=== PATIENT | male | born 1955 | race Caucasian/White ===

== ENCOUNTER 2021-03-08 21:29 | Emergency (ER) | payer BC ==
[2021-03-08 21:34] VITALS: TEMP 98
[2021-03-08] MEDS ORDERED: SODIUM CHLORIDE 0.9% 1,000 ML IV STA ×2 (21:41)
[2021-03-08] MEDS ORDERED: ONDANSETRON 4 MG/2 ML VIAL IVP STA (21:41)
[2021-03-08] MEDS ORDERED: MORPHINE SULFATE 4 MG/ML SYRINGE IV STA (21:41)
[2021-03-08] MEDS ORDERED: DILTIAZEM DRIP BOLUS FROM BAG 1 MG SOLN IV ONE (21:41)
[2021-03-08] MEDS ORDERED: METOPROLOL TARTRATE 5 MG/5 ML VIAL IVP STA (21:41)
--- NOTE | 2021-03-08 21:42 | ED ---
Chest Pain HPI - General Chief Complaint: Chest Pain Stated Complaint: Chest Pain Time Seen by Provider: 03/08/21 21:41 Source: patient, RN notes reviewed, old records reviewed Mode of arrival: wheelchair Limitations: no limitations - History of Present Illness Initial Comments: This is a 65-year-old male DF for evaluation patient presents with for chest pain. Patient had chest pain for 2-3 days. Sweating and episodes of severe pain started by episodes of lesser pain. Patient of severe shortness of breath nausea vomiting tonight. Patient has history of high blood pressure cholesterol diabetes history of smoking. History of some alcohol use but has not drank in 2 days. Otherwise no recent travel history or sick contacts MD Complaint: chest pain -: days(s) Onset: during rest, during exertion, after eating, awoke with symptoms Pain Location: substernal, left chest Pain Radiation: back Severity: moderate Severity scale (1-10): 5 Quality: tightness, aching, heaviness Consistency: constant Improves With: nothing Worsens With: exertion Context: recent illness Anginal Symptoms: nausea, vomiting Other Symptoms: cough, palpitations Treatments Prior to Arrival: none - Related Data Home Medications Medication Instructions Recorded Confirmed Ibuprofen [Advil] 600 mg PO Q8HR PRN 03/08/21 03/08/21 Lisinopril-Hctz 20-25 mg 1 tab PO DAILY 03/08/21 03/08/21 [Zestoretic 20-25] Pioglitazone HCl 15 mg PO DAILY 03/08/21 03/08/21 Rosuvastatin Calcium 20 mg PO DAILY 03/08/21 03/08/21 Allergies Allergy/AdvReac Type Severity Reaction Status Date / Time codeine Allergy Rash/Hives Verified 03/08/21 22:27 Penicillins Allergy Rash/Hives Verified 03/08/21 22:27 Review of Systems ROS Statement: Those systems with pertinent positive or pertinent negative responses have been documented in the HPI. ROS Other: All systems not noted in ROS Statement are negative. EKG Findings - EKG Comments: EKG Findings:: EKG is A. fib 128 QRS 114 QTc 487. repeat. EKG is A. fib 81 QRS 110 QTc 483 Past Medical History Past Medical History: Diabetes Mellitus, Hyperlipidemia, Hypertension History of Any Multi-Drug Resistant Organisms: None Reported Past Surgical History: No Surgical Hx Reported Past Psychological History: No Psychological Hx Reported Smoking Status: Current every day smoker Past Alcohol Use History: None Reported Past Drug Use History: None Reported General Exam Limitations: no limitations General appearance: alert, in no apparent distress, anxious, lethargic, in distress Head exam: Present: atraumatic, normocephalic, normal inspection Eye exam: Present: normal appearance, PERRL, EOMI. Absent: scleral icterus, conjunctival injection, periorbital swelling ENT exam: Present: normal exam, mucous membranes dry, mucous membranes moist Neck exam: Present: normal inspection. Absent: tenderness, meningismus, lymphadenopathy Respiratory exam: Present: normal lung sounds bilaterally. Absent: respiratory distress, wheezes, rales, rhonchi, stridor Cardiovascular Exam: Present: tachycardia, irregular rhythm, normal heart sounds. Absent: systolic murmur, diastolic murmur, rubs, gallop, clicks GI/Abdominal exam: Present: soft, normal bowel sounds. Absent: distended, tenderness, guarding, rebound, rigid Extremities exam: Present: normal inspection, full ROM, normal capillary refill. Absent: tenderness, pedal edema, joint swelling, calf tenderness Back exam: Present: normal inspection Neurological exam: Present: alert, oriented X3, CN II-XII intact Psychiatric exam: Present: normal affect, normal mood Skin exam: Present: warm, dry, intact, normal color. Absent: rash Course Vital Signs 03/08/21 03/08/21 03/08/21 21:32 21:35 23:00 Temperature 98.0 F Pulse Rate 94 87 90 Respiratory 20 18 16 Rate Blood Pressure 92/55 111/69 96/61 O2 Sat by Pulse 98 81 L Oximetry 03/08/21 03/08/21 03/08/21 23:17 23:18 23:30 Temperature Pulse Rate 92 101 H Respiratory Rate Blood Pressure O2 Sat by Pulse 91 L Oximetry 03/08/21 23:42 Temperature Pulse Rate 90 Respiratory 20 Rate Blood Pressure 103/63 O2 Sat by Pulse 92 L Oximetry - Reevaluation(s) Reevaluation #1: 03/08/21 23:40 medical record is reviewed Reevaluation #2: 03/08/21 23:40 heart rate well controlled with meds, EKG improved Reevaluation #3: 03/08/21 23:42 Patient family have been informed of results - Consultations Consultation #1: Spoke with cardiology regarding regarding findings and patient's elevated troponin Chest Pain MDM - MDM 65 male to ER with likely recent acute WI and ACS elevated troponin new-onset atrial fibrillation with RVR and heart failure. CT chest negative for PE Critical Care Time Critical Care Time: Yes Total Critical Care Time: 31 Disposition Clinical Impression: Chest pain, CHF (congestive heart failure), Atrial fibrillation with RVR, Hypoxia, ACS (acute coronary syndrome), Elevated troponin Disposition: ADMITTED IP TO THIS HOSP Condition: Fair Is patient prescribed a controlled substance at d/c from ED?: No Referrals: Salvador Mills DO [Primary Care Provider] - 1-2 days
[2021-03-08] MEDS ORDERED: DILTIAZEM 125 MG in SODIUM CHLORIDE 0.9% 100 ML IV SCH (21:45)
[2021-03-08 21:51] LABS: Glucose,Whole Blood 136 mg/dL (75-99)
[2021-03-08 21:57] LABS: Basophils # (A) 0.1 k/uL (0-0.2); Basophils % (A) 1 %; Eosinophils # (A) 0.3 k/uL (0-0.7); Eosinophils % (A) 2 %; HCT 44.9 % (39.0-53.0); HGB 14.7 gm/dL (13.0-17.5); Lymphocytes # (A) 3.7 k/uL (1.0-4.8); Lymphocytes % (A) 25 %; MCH 30.2 pg (25.0-35.0); MCHC 32.6 g/dL (31.0-37.0); MCV 92.5 fL (80.0-100.0); Mean Platelet Volume 8.4; Monocytes # (A) 0.7 k/uL (0-1.0); Monocytes % (A) 5 %; Neutrophils # (A) 9.9 k/uL (1.3-7.7); Neutrophils % (A) 67 %; Platelet Count 249 k/uL (150-450); RBC 4.86 m/uL (4.30-5.90); RDW 13.3 % (11.5-15.5); WBC 14.8 k/uL (3.8-10.6)
[2021-03-08 22:07] LABS: Albumin 4.2 g/dL (3.5-5.0); Phosphorus 3.5 mg/dL (2.5-4.5); Total Bilirubin 1.4 mg/dL (0.2-1.3)
[2021-03-08 22:11] LABS: Partial Thromboplastin Time 26.4 sec (22.0-30.0); Prothrombin Time 10.5 sec (9.0-12.0)
[2021-03-08 22:14] LABS: Potassium 4.2 mmol/L (3.5-5.1)
[2021-03-08 22:18] LABS: Creatine Kinase MB 13.5 ng/mL (0.0-2.4)
--- NOTE | 2021-03-08 22:25 | XR ---
EXAMINATION TYPE: XR chest 1V portable DATE OF EXAM: 03/08/2021 CLINICAL HISTORY: cp. Chest pain and shortness of breath x1 day. TECHNIQUE: Portable frontal view of the chest. COMPARISON: None FINDINGS: The cardiomediastinal silhouette is within normal limits for size. There is diffuse inters titial coarsening. There are many tiny are incidentally oriented peripheral opacities of the bilatera l lung bases which may represent Areli B lines. There is no focal air space opacity. No pleural eff usion. No pneumothorax seen. No acute displaced osseous fracture. IMPRESSION: Diffusely increased interstitial lung markings. Given possible Areli B lines, findings most likely r epresent interstitial edema. Other differential considerations include chronic interstitial coarsenin g and atypical pneumonitis.
[2021-03-08 22:28] LABS: Troponin I 11.8 ng/mL (0.000-0.034)
[2021-03-08 22:37] LABS: D-Dimer 0.63 mg/L FEU (<0.60)
[2021-03-08] MEDS ORDERED: IPRATROPIUM-ALBUTEROL 3 ML NEB INHALATION STA (23:07)
[2021-03-08] MEDS ORDERED: HEPARIN SODIUM 1,000 UN/ML (10ML VL) IV ONE (23:43)
[2021-03-08] MEDS ORDERED: HEPARIN SODIUM 1,000 UN/ML (10ML VL) IV PRN (23:43)
[2021-03-08] MEDS ORDERED: HEPARIN SOD,PORK IN 0.45% NACL 25,000 UNIT in 0.45% NACL 1 250ML.BAG IV SCH (23:45)
--- NOTE | 2021-03-09 | CT ---
EXAMINATION TYPE: CT angio chest DATE OF EXAM: 03/08/2021 COMPARISON: None HISTORY: PE CT DLP: 374.1 mGycm Automated exposure control for dose reduction was used. CONTRAST: Performed with IV Contrast, patient injected with 70 mL of Isovue 370. There are 3-D post processed images. There is 1.7 cm slightly spiculated nodule in the medial right upper lobe. This is close to the thora cic spine. Thoracic aorta is atheromatous. There are few paratracheal lymph nodes that measure up to 1.5 cm. There are bilateral bronchial lymph nodes up to 1.2 cm. Some of the lymph nodes are calcified . There is normal contrast opacification of the pulmonary arteries. There are no filling defects. The re is no thoracic aortic aneurysm. The ascending aorta measures 3.2 cm. There is coarse reticular interstitial infiltrate in the lower lung navarro bilaterally. There is mild pleural thickening posteriorly in both lung navarro. Upper abdominal soft tissues are intact. There i s some hypertrophy of the left adrenal gland. Thoracic spine is intact. There is no compression fracture. Sternum is intact. IMPRESSION: No evidence of pulmonary embolism. There is some mild mediastinal and bronchial adenopathy. Some of t his adenopathy is consistent with old granulomatous disease. There is a slightly spiculated noncalcified right upper lobe mass. Tumor is possible. Follow-up recom mended. Interstitial infiltrates in the lower lung navarro probably related to pulmonary fibrosis.
[2021-03-09] MEDS ORDERED: SODIUM CHLORIDE 0.9% 1,000 ML IV STA ×2 (01:35→03:33)
[2021-03-09] MEDS ORDERED: METOPROLOL TARTRATE 5 MG/5 ML VIAL IVP STA (02:17)
[2021-03-09 02:42] VITALS: RESP 23
--- NOTE | 2021-03-09 02:52 | XR ---
EXAM: XR Chest, 1 View CLINICAL HISTORY: Shortness of breath. TECHNIQUE: Frontal view of the chest. COMPARISON: 03/08/2021. FINDINGS: Lungs: Diffuse patchy airspace disease is noted in the medial right lower lobe extending to the infrahilar region most suggestive of pneumonia. Lungs are well aerated. Pleural space: Unremarkable. No pneumothorax. Heart: Unremarkable. No cardiomegaly. Mediastinum: Unremarkable. Bones/joints: Osteopenia. Soft tissues: Soft tissues are unremarkable. IMPRESSION: Patchy airspace disease right lower lobe most suggestive of right lower lobe pneumonia. Clinical correlation and short-term follow-up is advised.
[2021-03-09] MEDS ORDERED: AZITHROMYCIN 500 MG in SODIUM CHLORIDE 0.9% 250 ML IVPB STA (03:32)
[2021-03-09] MEDS ORDERED: MORPHINE SULFATE 4 MG/ML SYRINGE IVP STA (04:05)
[2021-03-09] MEDS ORDERED: LORazepam 2 MG/ML INJ IV STA (04:05)
[2021-03-09] MEDS ORDERED: MORPHINE SULFATE 2 MG/ML SYRINGE IVP STA (04:05)
[2021-03-09] MEDS ORDERED: NOREPINEPHRINE 4 MG in SODIUM CHLORIDE 0.9% 250 ML IV ONE (04:13)
[2021-03-09] MEDS ORDERED: MIDAZOLAM 1 MG/ML 5 ML VIAL IV STA (04:30)
--- NOTE | 2021-03-09 04:58 | ED ---
Medical Decision Making - Medical Decision Making 65 male to the ER for evaluation patient had persistent shortness of breath here in the ER and atrial fibrillation and RVR, Patient is repeat chest x-ray and placed on BiPAP which does show development of interval right lower lobe pneumonia, patient placed on sepsis for call with IV resuscitation, IV antibiotics Patient continues to feel shortness of breath Patient now developing episodes of bradycardia patient became more unresponsive with need for intubation. Intubation to protect airway. Patient then had periods of bradycardia leading to loss of feelings of pulse which did respond to ACLS, CPR. Patient did have both central line placement was intubated. Repeat EKGs and cardiac enzymes have been sent. Did speak with cardiology regarding changes status the patient and they are aware and the finishing lab technician has been paged. - Lab Data Result diagrams: 03/08/21 21:43 03/08/21 21:43 Lab Results 03/08/21 03/08/21 03/08/21 Range/Units 21:43 21:43 21:43 WBC 14.8 H (3.8-10.6) k/uL RBC 4.86 (4.30-5.90) m/uL Hgb 14.7 (13.0-17.5) gm/dL Hct 44.9 (39.0-53.0) % MCV 92.5 (80.0-100.0) fL MCH 30.2 (25.0-35.0) pg MCHC 32.6 (31.0-37.0) g/dL RDW 13.3 (11.5-15.5) % Plt Count 249 (150-450) k/uL MPV 8.4 Neutrophils % 67 % Lymphocytes % 25 % Monocytes % 5 % Eosinophils % 2 % Basophils % 1 % Neutrophils # 9.9 H (1.3-7.7) k/uL Lymphocytes # 3.7 (1.0-4.8) k/uL Monocytes # 0.7 (0-1.0) k/uL Eosinophils # 0.3 (0-0.7) k/uL Basophils # 0.1 (0-0.2) k/uL PT 10.5 (9.0-12.0) sec INR 1.0 (<1.2) APTT 26.4 (22.0-30.0) sec D-Dimer 0.63 H (<0.60) mg/L FEU Sodium 135 L (137-145) mmol/L Potassium 4.2 (3.5-5.1) mmol/L Chloride 99 (98-107) mmol/L Carbon Dioxide 26 (22-30) mmol/L Anion Gap 10 mmol/L BUN 18 (9-20) mg/dL Creatinine 1.28 H (0.66-1.25) mg/dL Est GFR (CKD-EPI)AfAm 68 (>60 ml/min/1.73 sqM) Est GFR (CKD-EPI)NonAf 59 (>60 ml/min/1.73 sqM) Glucose 134 H (74-99) mg/dL POC Glucose (mg/dL) (75-99) mg/dL POC Glu Carpentry Supervisor ID Calcium 9.0 (8.4-10.2) mg/dL Phosphorus 3.5 (2.5-4.5) mg/dL Magnesium 2.0 (1.6-2.3) mg/dL Total Bilirubin 1.4 H (0.2-1.3) mg/dL AST 67 H (17-59) U/L ALT 21 (4-49) U/L Alkaline Phosphatase 71 (38-126) U/L Lactate Dehydrogenase (313-618) U/L Creatine Kinase 411 H (55-170) U/L Total Creatine Kinase (55-170) U/L CK-MB (CK-2) (0.0-2.4) ng/mL Troponin I (0.000-0.034) ng/mL C-Reactive Protein (<1.0) mg/dL NT-Pro-B Natriuret Pep pg/mL Total Protein 7.0 (6.3-8.2) g/dL Albumin 4.2 (3.5-5.0) g/dL Lipase (23-300) U/L Coronavirus (PCR) (Not Detectd) 03/08/21 03/08/21 03/08/21 Range/Units 21:43 21:43 21:43 WBC (3.8-10.6) k/uL RBC (4.30-5.90) m/uL Hgb (13.0-17.5) gm/dL Hct (39.0-53.0) % MCV (80.0-100.0) fL MCH (25.0-35.0) pg MCHC (31.0-37.0) g/dL RDW (11.5-15.5) % Plt Count (150-450) k/uL MPV Neutrophils % % Lymphocytes % % Monocytes % % Eosinophils % % Basophils % % Neutrophils # (1.3-7.7) k/uL Lymphocytes # (1.0-4.8) k/uL Monocytes # (0-1.0) k/uL Eosinophils # (0-0.7) k/uL Basophils # (0-0.2) k/uL PT (9.0-12.0) sec INR (<1.2) APTT (22.0-30.0) sec D-Dimer (<0.60) mg/L FEU Sodium (137-145) mmol/L Potassium (3.5-5.1) mmol/L Chloride (98-107) mmol/L Carbon Dioxide (22-30) mmol/L Anion Gap mmol/L BUN (9-20) mg/dL Creatinine (0.66-1.25) mg/dL Est GFR (CKD-EPI)AfAm (>60 ml/min/1.73 sqM) Est GFR (CKD-EPI)NonAf (>60 ml/min/1.73 sqM) Glucose (74-99) mg/dL POC Glucose (mg/dL) (75-99) mg/dL POC Glu Carpentry Supervisor ID Calcium (8.4-10.2) mg/dL Phosphorus (2.5-4.5) mg/dL Magnesium (1.6-2.3) mg/dL Total Bilirubin (0.2-1.3) mg/dL AST (17-59) U/L ALT (4-49) U/L Alkaline Phosphatase (38-126) U/L Lactate Dehydrogenase 1414 H (313-618) U/L Creatine Kinase (55-170) U/L Total Creatine Kinase (55-170) U/L CK-MB (CK-2) 13.5 H (0.0-2.4) ng/mL Troponin I 11.800 H* (0.000-0.034) ng/mL C-Reactive Protein 5.0 H (<1.0) mg/dL NT-Pro-B Natriuret Pep 47236 pg/mL Total Protein (6.3-8.2) g/dL Albumin (3.5-5.0) g/dL Lipase (23-300) U/L Coronavirus (PCR) (Not Detectd) 03/08/21 03/08/21 03/08/21 Range/Units 21:43 21:47 23:42 WBC (3.8-10.6) k/uL RBC (4.30-5.90) m/uL Hgb (13.0-17.5) gm/dL Hct (39.0-53.0) % MCV (80.0-100.0) fL MCH (25.0-35.0) pg MCHC (31.0-37.0) g/dL RDW (11.5-15.5) % Plt Count (150-450) k/uL MPV Neutrophils % % Lymphocytes % % Monocytes % % Eosinophils % % Basophils % % Neutrophils # (1.3-7.7) k/uL Lymphocytes # (1.0-4.8) k/uL Monocytes # (0-1.0) k/uL Eosinophils # (0-0.7) k/uL Basophils # (0-0.2) k/uL PT (9.0-12.0) sec INR (<1.2) APTT (22.0-30.0) sec D-Dimer (<0.60) mg/L FEU Sodium (137-145) mmol/L Potassium (3.5-5.1) mmol/L Chloride (98-107) mmol/L Carbon Dioxide (22-30) mmol/L Anion Gap mmol/L BUN (9-20) mg/dL Creatinine (0.66-1.25) mg/dL Est GFR (CKD-EPI)AfAm (>60 ml/min/1.73 sqM) Est GFR (CKD-EPI)NonAf (>60 ml/min/1.73 sqM) Glucose (74-99) mg/dL POC Glucose (mg/dL) 136 H (75-99) mg/dL POC Glu Carpentry Supervisor Kori Cantrell Calcium (8.4-10.2) mg/dL Phosphorus (2.5-4.5) mg/dL Magnesium (1.6-2.3) mg/dL Total Bilirubin (0.2-1.3) mg/dL AST (17-59) U/L ALT (4-49) U/L Alkaline Phosphatase (38-126) U/L Lactate Dehydrogenase (313-618) U/L Creatine Kinase (55-170) U/L Total Creatine Kinase (55-170) U/L CK-MB (CK-2) (0.0-2.4) ng/mL Troponin I (0.000-0.034) ng/mL C-Reactive Protein (<1.0) mg/dL NT-Pro-B Natriuret Pep pg/mL Total Protein (6.3-8.2) g/dL Albumin (3.5-5.0) g/dL Lipase 113 (23-300) U/L Coronavirus (PCR) Not Detected (Not Detectd) 03/09/21 Range/Units 04:17 WBC (3.8-10.6) k/uL RBC (4.30-5.90) m/uL Hgb (13.0-17.5) gm/dL Hct (39.0-53.0) % MCV (80.0-100.0) fL MCH (25.0-35.0) pg MCHC (31.0-37.0) g/dL RDW (11.5-15.5) % Plt Count (150-450) k/uL MPV Neutrophils % % Lymphocytes % % Monocytes % % Eosinophils % % Basophils % % Neutrophils # (1.3-7.7) k/uL Lymphocytes # (1.0-4.8) k/uL Monocytes # (0-1.0) k/uL Eosinophils # (0-0.7) k/uL Basophils # (0-0.2) k/uL PT (9.0-12.0) sec INR (<1.2) APTT (22.0-30.0) sec D-Dimer (<0.60) mg/L FEU Sodium (137-145) mmol/L Potassium (3.5-5.1) mmol/L Chloride (98-107) mmol/L Carbon Dioxide (22-30) mmol/L Anion Gap mmol/L BUN (9-20) mg/dL Creatinine (0.66-1.25) mg/dL Est GFR (CKD-EPI)AfAm (>60 ml/min/1.73 sqM) Est GFR (CKD-EPI)NonAf (>60 ml/min/1.73 sqM) Glucose (74-99) mg/dL POC Glucose (mg/dL) (75-99) mg/dL POC Glu Carpentry Supervisor ID Calcium (8.4-10.2) mg/dL Phosphorus (2.5-4.5) mg/dL Magnesium (1.6-2.3) mg/dL Total Bilirubin (0.2-1.3) mg/dL AST (17-59) U/L ALT (4-49) U/L Alkaline Phosphatase (38-126) U/L Lactate Dehydrogenase (313-618) U/L Creatine Kinase (55-170) U/L Total Creatine Kinase 554 H (55-170) U/L CK-MB (CK-2) (0.0-2.4) ng/mL Troponin I (0.000-0.034) ng/mL C-Reactive Protein (<1.0) mg/dL NT-Pro-B Natriuret Pep pg/mL Total Protein (6.3-8.2) g/dL Albumin (3.5-5.0) g/dL Lipase (23-300) U/L Coronavirus (PCR) (Not Detectd) - EKG Data -: EKG Interpreted by Me (Repeat EKGs are on the chart) - Radiology Data Radiology results: report reviewed (Chest x-ray repeated does show right lower lobe pneumonia, repeat shows interval ET tube placement), image reviewed Critical Care Time Critical Care Time: Yes Total Critical Care Time: 31 Disposition Clinical Impression: Chest pain, CHF (congestive heart failure), Atrial fibrillation with RVR, Hypoxia, ACS (acute coronary syndrome), Elevated troponin, Right lower lobe pneumonia, Bradycardia Disposition: ADMITTED IP TO THIS HOSP Condition: Critical Is patient prescribed a controlled substance at d/c from ED?: No Referrals: Salvador Mills DO [Primary Care Provider] - 1-2 days Procedures - Central Line Placement Right IJ Consent Obtained: verbal consent Patient Placed on Monitor/Pulse Ox: Yes Prep: mask, gown, gloves Central Line Prep: Povidone-Iodine 1%, sterile drapes applied Local Anesthesia Used: Lidocaine 1% Ultrasound Used for Placement: Yes Central Line Lumen Inserted: triple Central Line Position: good blood return, all ports aspirated, flushed, capped, sutured in place with nylon Dressing Applied: Tegaderm Post Procedure X-Ray: tip of catheter in good position Patient Tolerated Procedure: well Complications: none - Intubation Sedative: Versed Laryngoscope: Dallin Size: 3 ET Tube Size: 8 ET Tube Uncuffed: Yes Tube Secured Location: teeth Tube Placement Confirmation: visualized tube passing through cords, equal breath sounds bilaterally, no breath sounds over epigastrium, confirmation by capnometry Patient Tolerated Procedure: well Intubation Complications: none
[2021-03-09 05:01] LABS: Creatine Kinase MB 29.2 ng/mL (0.0-2.4)
[2021-03-09 05:07] LABS: Troponin I 11.4 ng/mL (0.000-0.034)
[2021-03-09] MEDS ORDERED: LIDOCAINE 1% INJ 10MG/ML (20 ML MDV) ONE (05:07)
--- NOTE | 2021-03-09 05:15 | XR ---
EXAM: XR Chest, 1 View CLINICAL HISTORY: Shortness of breath. TECHNIQUE: Frontal view of the chest. COMPARISON: Earlier study of 03/09/2021. FINDINGS: Lungs: Diffuse patchy airspace disease is noted throughout both lungs worrisome for either diffuse pneumonia or pulmonary edema. Pleural space: Unremarkable. No pneumothorax. Heart: Unremarkable. No cardiomegaly. Mediastinum: Unremarkable. Bones/joints: Unremarkable. Vasculature: Atherosclerotic disease of the aortic knob. Tubes, lines and devices: Endotracheal tube is noted in place with its tip approximately 3 cm above the mane. NG tube is noted in place with its tip below diaphragm out of view. Right internal jugular catheter is noted in place with its tip at the distal superior vena cava. IMPRESSION: 1. NG tube and endotracheal tube are noted in place in good position. 2. Right internal jugular catheter is noted in place. 3. Diffuse patchy airspace disease bilaterally differential etiologies which include pneumonia versus pulmonary edema. Clinical correlation is necessary.
[2021-03-09] MEDS ORDERED: ASPIRIN 325 MG TAB OG-TUBE ONE (05:17)
[2021-03-09] MEDS ORDERED: ASPIRIN 325 MG TAB ONE (05:17)
[2021-03-09 05:41] VITALS: BP 115/73; PULSE 129
--- NOTE | 2021-03-09 07:49 | CONS ---
CONSULTATION HISTORY OF PRESENT ILLNESS: This is a 65-year-old gentleman who presented to [facility] around 9:40 last night with symptoms of chest discomfort and was in atrial fibrillation with rapid ventricular rate with ST-T wave changes of subendocardial ischemia and evidence of recent anteroseptal myocardial infarction. The patient underwent evaluation in the ER. I was called by ER physician around midnight with elevated troponin. Pt was stable hemodynamically and was not on pressors,not in respiratory distress. Was advised heparin ,Aspirin Plavix and beta blockers.Pt had recent AK. His condition deteriorated around 4 o'clock this morning, he became hypotensive and developed respiratory distress. He was initially tried on BiPAP and subsequently was intubated. The ER physician called me about the change in his condition. I told him to activate the brush clearing laborer with a view to performing emergent cardiac catheterization and consider possible balloon pump placement. When I arrived in the emergency room, the patient apparently had a cardiac arrest and was resuscitated for about 15 minutes. He was intubated on vent, was hypotensive with a blood pressures in the 80s systolic. Patient was just started on Levophed. I asked them to increase the dose of Levophed and advised the patient to be brought to the brush clearing laborer for emergent cardiac catheterization. Pt seem to have completed his infarct. Exam showed a pt who was hypotensive, unresponsive on vent with crackles in lungs and a soft systolic murmur at apex of heart with diminished peripheral pulses. Pt was in cardiogenic shock. As the brush clearing laborer was preparing the patient for the procedure, the patient developed pulseless electrical activity with no pulses and no blood pressure and underwent cardiopulmonary resuscitation per protocol. After 20 minutes of cardiopulmonary resuscitation, we did not get any response. There was no pulse and we could not obtain any blood pressures and at this stage, the code was called off and the patient was pronounced . At this time, we have not been able to contact the family members. MMODL / IJN: [id number] / FÉLIX
[2021-03-09] MEDS ORDERED: AZITHROMYCIN 500 MG in SODIUM CHLORIDE 0.9% 250 ML IVPB SCH (09:00)
[2021-03-09] MEDS ORDERED: IPRATROPIUM-ALBUTEROL 3 ML NEB INHALATION SCH ×2 (09:00)
== END 2021-03-09 05:47 | disposition other institution (70) ==
LOC: EC 21:29 → SUPCPDRO 21:29 → EC 03-09 05:47
DX: I24.9 Acute ischemic heart disease, unspecified (principal); I11.0 Hypertensive heart disease with heart failure; I50.9 Heart failure, unspecified; I48.91 Unspecified atrial fibrillation; R77.8 Other specified abnormalities of plasma proteins; R09.02 Hypoxemia; E11.9 Type 2 diabetes mellitus without complications; E78.5 Hyperlipidemia, unspecified; I25.2 Old myocardial infarction; F17.200 Nicotine dependence, unspecified, uncomplicated; Z20.822 Contact with and (suspected) exposure to COVID-19; Z79.84 Long term (current) use of oral hypoglycemic drugs; Z79.899 Other long term (current) drug therapy; Z88.0 Allergy status to penicillin; Z88.5 Allergy status to narcotic agent
CPT/HCPCS: 36415 ×2; 94660; 94640; 94002; 93005 ×2; 92950; 85379; 83880; 80053; 82550 ×2; 82553 ×2; 83615; 83690; 83735; 84100; 84484 ×2; 85025; 85610; 85730; 86140; 87635; 71045 ×2; 71275; 99291; 36556; 31500; 96374; 96375 ×2; 96376; 96361 ×8; C1894; C1769; J2060; J2270 ×2; J2405; J1644 ×2; Q9967